=== PATIENT | male | born 1965 | race Caucasian/White ===

== ENCOUNTER → 2023-03-02 10:52 | Outpatient (BNVA) | payer OTHER, SELFPAY | PROVIDERS: Visit Provider Internal Medicine | DX: S43.001A Unspecified subluxation of right shoulder joint, initial encounter (principal); X50.1XXA Overexertion from prolonged static or awkward postures, initial encounter | CPT/HCPCS: 99203 ==

== ENCOUNTER → 2023-03-15 10:18 | Outpatient (BNVA) | payer OTHER, SELFPAY | PROVIDERS: Visit Provider Internal Medicine | DX: S43.001D Unspecified subluxation of right shoulder joint, subsequent encounter (principal); X50.1XXD Overexertion from prolonged static or awkward postures, subsequent encounter | CPT/HCPCS: 99213 ==

== ENCOUNTER → 2023-03-24 11:42 | Outpatient (BNVA) | payer OTHER, SELFPAY | PROVIDERS: Visit Provider Internal Medicine | DX: S43.001D Unspecified subluxation of right shoulder joint, subsequent encounter (principal); X50.1XXD Overexertion from prolonged static or awkward postures, subsequent encounter | CPT/HCPCS: 99213 ==

== ENCOUNTER → 2023-04-07 11:48 | Outpatient (BNVA) | payer OTHER, SELFPAY | PROVIDERS: PCP Internal Medicine; Visit Provider Internal Medicine | DX: S43.001D Unspecified subluxation of right shoulder joint, subsequent encounter (principal); X50.1XXD Overexertion from prolonged static or awkward postures, subsequent encounter | CPT/HCPCS: 99213 ==

== ENCOUNTER 2023-04-12 09:32 | Outpatient (REF) | payer OTHER, SELFPAY ==
--- NOTE | ~2023-04-12 | MR_ITS ---
EXAMINATION: MR SHOULDER WITHOUT CONTRAST, RIGHT CLINICAL INFORMATION: Shoulder subluxation COMPARISON: Radiographs 03/15/2023 TECHNIQUE: MRI of the shoulder without contrast was performed on a high-field scanner. FINDINGS: ROTATOR CUFF: The supraspinatus tendon is completely torn and retracted to the level of the humeral head apex. There is ill-defined undersurface partial tearing throughout the distal infraspinatus and subscapularis tendons. Mild supraspinatus muscle atrophy. BICEPS: The biceps tendon is completely torn and retracted. CORACOACROMIAL ARCH: The undersurface of the acromion is laterally downsloping with a subacromial spur. Mild acromioclavicular osteoarthritis. LABRUM/CAPSULE: No definite labral tear. GLENOHUMERAL JOINT/MARROW: Degenerative cyst of the lesser tuberosity. Small joint effusion. Mild degenerative spurring along the greater tuberosity. MR/MR shoulder RT wo con IMPRESSION: 1. Completely torn and retracted supraspinatus tendon with mild muscle atrophy. 2. Ill-defined undersurface partial tearing of the infraspinatus and subscapularis tendons. 3. Laterally downsloping acromion with a subacromial spur. 4. Mild acromioclavicular and glenohumeral osteoarthritis with a small joint effusion. 5. Completely torn and retracted biceps tendon.
== END 2023-04-12 09:33 | disposition home or self-care (01) ==
LOC: HO.MRI 09:32
PROVIDERS: PCP Internal Medicine; Visit Provider Internal Medicine
DX: S43.001A Unspecified subluxation of right shoulder joint, initial encounter (principal)
CPT/HCPCS: 73221

== ENCOUNTER → 2023-04-19 11:10 | Outpatient (BNVA) | payer OTHER, SELFPAY | PROVIDERS: PCP Internal Medicine; Visit Provider Internal Medicine | DX: S46.011D Strain of muscle(s) and tendon(s) of the rotator cuff of right shoulder, subsequent encounter (principal); X50.1XXD Overexertion from prolonged static or awkward postures, subsequent encounter | CPT/HCPCS: 99213 ==